=== PATIENT | female | born 1995 | race Caucasian/White ===

== ENCOUNTER 2016-11-25 17:10 | Emergency (ER) | payer SELFPAY ==
[2016-11-25] MEDS ORDERED: KETOROLAC TROMETHAMINE 30 MG/ML SOL IV ONE (17:40)
[2016-11-25] MEDS ORDERED: ONDANSETRON HCL 4 MG/2 ML SOL IV ONE (17:40)
[2016-11-25] MEDS ORDERED: ACETAMINOPHEN 325 MG PO ONE (17:42)
[2016-11-25] MEDS ORDERED: SODIUM CHLORIDE 0.9% 1000ML 1,000 ML IV SCH (17:45)
[2016-11-25 17:50] LABS: BASOPHILS % (AUTO) 0 % (0-3); EOSINOPHILS % (AUTO) 5 % (0-9); HEMATOCRIT 42 % (35-47); MEAN CORPUSCULAR HGB CONC 34.4 gm/dl (32.0-36.0); MEAN CORPUSCULAR VOLUME 88 fL (81-99); MONOCYTES % (AUTO) 7.2 % (0-12); NEUTROPHILS % (AUTO) 81.1 % (37-80)
[2016-11-25] MEDS ORDERED: SODIUM CHLORIDE 0.9% FLUSH 10 ML SOL IV PRN (17:55)
[2016-11-25] MEDS ORDERED: KETOROLAC TROMETHAMINE 30 MG/ML SOL ONE (17:58)
[2016-11-25] MEDS ORDERED: ACETAMINOPHEN 325 MG ONE (17:58)
[2016-11-25] MEDS ORDERED: ONDANSETRON HCL 4 MG/2 ML SOL ONE (17:58)
[2016-11-25 18:10] LABS: ALBUMIN 4.1 gm/dl (3.4-5.0); CALCIUM 8.6 mg/dl (8.5-10.1); POTASSIUM 4.1 mMol/L (3.5-5.1)
[2016-11-25 18:16] LABS: APPEARANCE,URINE Clear; BILIRUBIN,URINE NEGATIVE (NEGATIVE); COLOR,URINE Yellow; GLUCOSE, URINE (UA) NEGATIVE (NEGATIVE); KETONES,URINE NEGATIVE (NEGATIVE); LEUKOCYTE ESTERASE ,URINE NEGATIVE (NEGATIVE); NITRATE,URINE NEGATIVE (NEGATIVE); OCCULT BLOOD,URINE TRACE INTACT (NEG-TRACE); PH,URINE 7.5
[2016-11-25 18:29] LABS: RBC,URINE 0-3 (0-3AV/HPF); WBC,URINE 0-3 (0-5AV/HPF)
[2016-11-25 19:13] VITALS: RESP 16; TEMP 99.6
[2016-11-25] MEDS ORDERED: CEFTRIAXONE 1 GM PDS 1 GM in SODIUM CHLORIDE 0.9% 100 ML 100 ML IV ONE (20:22)
[2016-11-25] MEDS ORDERED: METRONIDAZOLE 250 MG TAB PO SCH (20:30)
[2016-11-25] MEDS ORDERED: CEFTRIAXONE 1 GM PDS ONE (20:33)
[2016-11-25] MEDS ORDERED: METRONIDAZOLE 250 MG TAB ONE (20:42)
[2016-11-25 21:17] VITALS: BP 150/94; PULSE 89; O2SAT 94
== END 2016-11-25 21:15 | disposition home or self-care (01) | DRG 759 ==
LOC: ED 17:10
DX: A59.01 Trichomonal vulvovaginitis (principal); Z87.440 Personal history of urinary (tract) infections
CPT/HCPCS: 36415; 80053; 81001; 84703; 85025; 87040; 87210; 87804; 96365; 96374; 96375; 99284; 99285; J0696; J1885; J2405

== ENCOUNTER 2017-01-24 09:06 | Emergency (ER) | payer MEDICAID ==
[2017-01-24] MEDS ORDERED: KETOROLAC TROMETHAMINE 30 MG/ML SOL IM ONE (10:15)
[2017-01-24] MEDS ORDERED: AMOXICILLIN 250 MG CAP PO ONE (10:16)
[2017-01-24] MEDS ORDERED: ACETAMINOPHEN 500 MG 500 MG TAB PO ONE (10:18)
[2017-01-24 10:21] VITALS: RESP 18
[2017-01-24] MEDS ORDERED: AMOXICILLIN 125/5 ML BOTTLE ONE (10:26)
[2017-01-24] MEDS ORDERED: KETOROLAC TROMETHAMINE 30 MG/ML SOL ONE (10:28)
[2017-01-24] MEDS ORDERED: ACETAMINOPHEN 500 MG 500 MG TAB ONE (10:28)
[2017-01-24 10:29] LABS: APPEARANCE,URINE Clear; BILIRUBIN,URINE 1+ (NEGATIVE); COLOR,URINE Yellow; GLUCOSE, URINE (UA) NEGATIVE (NEGATIVE); KETONES,URINE NEGATIVE (NEGATIVE); LEUKOCYTE ESTERASE ,URINE NEGATIVE (NEGATIVE); NITRATE,URINE NEGATIVE (NEGATIVE); OCCULT BLOOD,URINE 2+ (NEG-TRACE); PH,URINE 5.5
[2017-01-24 10:57] LABS: AMPHETAMINES NEGATIVE (NEGATIVE); ICTOTEST,URINE NEGATIVE (NEGATIVE); METHADONE NEGATIVE (NEGATIVE); OPIATES(OP13) NEGATIVE (NEGATIVE); OXYCODONE(OXY) NEGATIVE (NEGATIVE); PROPOXYPHENE(PPX) NEGATIVE (NEGATIVE); RBC,URINE 0-1 (0-3AV/HPF); TRICYCLIC ANTIDEPRESSANTS NEGATIVE (NEGATIVE); WBC,URINE 0-1 (0-5AV/HPF)
[2017-01-24 11:03] VITALS: TEMP 98.9
[2017-01-24 11:04] LABS: BASOPHILS % (AUTO) 1 % (0-3); EOSINOPHILS % (AUTO) 1 % (0-9); HEMATOCRIT 42 % (35-47); MEAN CORPUSCULAR HGB CONC 32.9 gm/dl (32.0-36.0); MEAN CORPUSCULAR VOLUME 90 fL (81-99); MONOCYTES % (AUTO) 5.5 % (0-12); NEUTROPHILS % (AUTO) 71.4 % (37-80)
[2017-01-24 11:26] LABS: ALBUMIN 3.9 gm/dl (3.4-5.0); CALCIUM 8.9 mg/dl (8.5-10.1); POTASSIUM 4.2 mMol/L (3.5-5.1); THYROID STIMULATING HORMONE 0.558 uIU/ml (0.358-3.740)
[2017-01-24 13:20] VITALS: BP 118/78; PULSE 72; O2SAT 98
== END 2017-01-24 13:58 | disposition home or self-care (01) | DRG 880 ==
LOC: ED 09:06
DX: R45.851 Suicidal ideations (principal); H65.93 Unspecified nonsuppurative otitis media, bilateral
CPT/HCPCS: 36415; 80053; 80305; 80307; 81001; 84443; 85025; 96372; 99284; 99285; J1885

== ENCOUNTER 2017-02-06 13:04 | Emergency (ER) | payer MEDICAID ==
[2017-02-06 13:24] VITALS: BP 120/87; PULSE 88; TEMP 98.4; O2SAT 99
== END 2017-02-06 13:33 | disposition home or self-care (01) | DRG 914 ==
LOC: ED 13:04
DX: S69.91XA Unspecified injury of right wrist, hand and finger(s), initial encounter (principal); W51.XXXA Accidental striking against or bumped into by another person, initial encounter
CPT/HCPCS: 99282

== ENCOUNTER 2017-07-12 13:41 | Emergency (ER) | payer OTHER, MEDICAID ==
[2017-07-12 13:41] VITALS: O2SAT 99
[2017-07-12] MEDS ORDERED: LEVETIRACETAM 250 MG TAB PO STA (13:55)
[2017-07-12] MEDS ORDERED: LEVETIRACETAM 250 MG TAB ONE (14:09)
[2017-07-12 14:22] LABS: CALCIUM 8.5 mg/dl (8.5-10.1); MAGNESIUM 2.1 mg/dl (1.8-2.4)
[2017-07-12 14:25] LABS: BASOPHILS % (AUTO) 2 % (0-3); EOSINOPHILS % (AUTO) 3 % (0-9); HEMATOCRIT 41 % (35-47); MEAN CORPUSCULAR HGB CONC 33.6 gm/dl (32.0-36.0); MEAN CORPUSCULAR VOLUME 90 fL (81-99); MONOCYTES % (AUTO) 5.2 % (0-12); NEUTROPHILS % (AUTO) 64.8 % (37-80)
[2017-07-12 16:06] VITALS: BP 135/95; PULSE 85; RESP 24; TEMP 98.7
== END 2017-07-12 15:00 | disposition home or self-care (01) | DRG 101 ==
LOC: ED 13:41
DX: R56.9 Unspecified convulsions (principal)
CPT/HCPCS: 36415; 70450; 80053; 83735; 85025; 99283

== ENCOUNTER 2017-10-15 11:23 | Emergency (ER) | payer OTHER ==
[2017-10-15 12:14] VITALS: BP 119/77; PULSE 65; RESP 20; TEMP 98.4; O2SAT 97
== END 2017-10-15 12:23 | disposition home or self-care (01) | DRG 153 ==
LOC: ED 11:23
DX: H66.004 Acute suppurative otitis media without spontaneous rupture of ear drum, recurrent, right ear (principal)
CPT/HCPCS: 99282

== ENCOUNTER 2019-04-08 12:31 | Emergency (ER) | payer SELFPAY ==
[2019-04-08 13:14] VITALS: RESP 16
[2019-04-08 14:19] LABS: ALBUMIN 3.2 gm/dl (3.4-5.0); ALKALINE PHOSPHATASE 49 IU/L (46-116); ALT 22 IU/L (14-63); AST 11 IU/L (15-37); BILIRUBIN,TOTAL 0.3 mg/dl (0.2-1.0); BLOOD UREA NITROGEN 12 mg/dl (7-18); CALCIUM 8.1 mg/dl (8.5-10.1); CARBON DIOXIDE 24.7 mEq/L (21-32); CHLORIDE 106 mMol/L (98-107); CREATININE 0.61 mg/dl (0.60-1.00); GLUCOSE 114 mg/dl (74-106); POTASSIUM 3.8 mMol/L (3.5-5.1); SODIUM 139 mMol/L (136-145); THYROID STIMULATING HORMONE 0.645 uIU/ml (0.358-3.740); TOTAL PROTEIN 6.8 gm/dl (6.4-8.2)
[2019-04-08 14:22] LABS: ACETAMINOPHEN < 2 ug/ml (10-30); ALCOHOL < 0.003 gm/dl (0.000-0.08)
[2019-04-08 14:24] LABS: HEMATOCRIT 39 % (35-47); HEMOGLOBIN 13.2 gm/dl (12.0-15.5); LYMPHOCYTES % (AUTO) 23.8 % (10-50); MEAN CORPUSCULAR HEMOGLOBIN 31.3 pg (27.0-32.0); MEAN CORPUSCULAR HGB CONC 33.9 gm/dl (32.0-36.0); MEAN CORPUSCULAR VOLUME 92 fL (81-99); MONOCYTES % (AUTO) 6.4 % (0-12)
[2019-04-08 14:25] LABS: EOSINOPHILS % (AUTO) 5 % (0-9)
[2019-04-08 14:32] LABS: BASOPHILS % (AUTO) 1 % (0-3)
[2019-04-08 20:23] VITALS: BP 114/76; PULSE 73; TEMP 98; O2SAT 100
== END 2019-04-08 20:42 | DRG 880 ==
LOC: ED 12:31 → SUPCPDRO 12:31 → ED 20:42
DX: R45.851 Suicidal ideations (principal)
CPT/HCPCS: 36415; 80053; 80307; 84443; 85025; 99283; 99284